=== PATIENT | male | born 1970 | race African-American/Black ===

== ENCOUNTER 2018-09-13 14:34 | Outpatient (CLI) | payer BC ==
[~2018-09-13 14:34] MED LIST: ISOVUE-370 76%-LOCM 1 ML ONE
--- NOTE | 2018-09-13 18:18 | CT ---
CT ABDOMEN WITH CONTRAST CT PELVIS WITH CONTRAST 09/13/18 HISTORY: Epigastric pain, intermittent times many months. COMPARISON: None. TECHNIQUE: Abdomen and pelvic CT are performed with IV and oral contrast. coronal reformatted images are submitt ed for interpretation. FINDINGS: ABDOMEN CT: Lung bases are clear. Normal heart size. No significant pericardial fluid the descending thoracic aor ta and abdominal aorta have a normal caliber. No periaortic fat stranding. Portal vein is patent. Gallbladder is unremarkable. Liver, spleen, pancreas, and the adrenal glands have appropriate attenuation and enhancement. There are nonspecific gastrohepatic lymph nodes. No retrocrural or periportal lymphadenopathy. There is a ventral abdominal hernia containing mesenteric fat. The defect measures approximately 2 cm . There is no mesenteric mass, free air or free fluid. There are a few scattered nonspecific, nonenla rged mesenteric lymph nodes. There is a solitary enlarged anterior mesenteric lymph node measuring 1. 1 x 1.1 cm. This lymph node is nonspecific. Symmetric enhancement of the kidneys. No obstructive urop athy. Gastric mucosa, duodenum, and multiple normal caliber small bowel loops are identified. No evidence o f small bowel obstruction. Normal ileocecal junction. Normal caliber appendix. The cecum ascending co yanet, transverse colon, descending colon, and sigmoid colon are unremarkable. There appears to be some asymmetric mucosal prominence involving the posterior left aspect of the anus and rectum. There is s ubtle adjacent stranding. Correlate for proctitis. Direct visualization to exclude a malignancy is re commended. PELVIC CT: No mass, lymphadenopathy, free air or free fluid. Unremarkable urinary bladder. No lytic or blastic lesions in the osseous structures. IMPRESSION: 1. Questionable proctitis versus mucosal abnormality/malignancy in the distal rectum/anal region . 2. Normal caliber appendix. 3. Scattered nonspecific mediastinal lymph nodes as described above. 4. Ventral abdominal wall hernia containing mesenteric fat. The hernia is just superior to the u mbilicus. POS: [facility]
== END 2018-09-13 14:35 | disposition home or self-care (01) ==
LOC: BICCT 14:34
PROVIDERS: ATTEND Internal Medicine
DX: R10.13 Epigastric pain (principal); K43.9 Ventral hernia without obstruction or gangrene
CPT/HCPCS: 74177